=== PATIENT | female | born 1970 | race Native Hawaiian/Other Pacific Islander ===

== ENCOUNTER 2017-08-15 17:16 | Outpatient (CLI) | payer OTHER | END 2017-08-15 17:17 | disposition home or self-care (01) | LOC: AMB 17:16 | DX: Z04.1 Encounter for examination and observation following transport accident (principal) ==

== ENCOUNTER 2018-04-10 11:04 | Outpatient (CLI) | payer OTHER | END 2018-04-10 20:58 | disposition home or self-care (01) | LOC: MAMMO 11:04 | DX: Z12.31 Encounter for screening mammogram for malignant neoplasm of breast (principal) ==

== ENCOUNTER 2019-04-15 10:40 | Outpatient (CLI) | payer OTHER | END 2019-04-15 20:18 | disposition home or self-care (01) | LOC: MAMMO 10:40 | DX: Z12.31 Encounter for screening mammogram for malignant neoplasm of breast (principal) ==

== ENCOUNTER 2020-04-22 10:31 | Outpatient (CLI) | payer OTHER | END 2020-04-22 20:21 | disposition home or self-care (01) | LOC: MAMMO 10:31 | DX: Z12.31 Encounter for screening mammogram for malignant neoplasm of breast (principal); M81.0 Age-related osteoporosis without current pathological fracture ==

== ENCOUNTER 2021-05-19 09:57 | Outpatient (CLI) | payer OTHER | END 2021-05-19 18:58 | disposition home or self-care (01) | LOC: MAMMO 09:57 | PROVIDERS: ATTEND Obstetrics & Gynecology | DX: Z12.31 Encounter for screening mammogram for malignant neoplasm of breast (principal) ==